=== PATIENT | male | born 1955 | race Caucasian/White ===

== ENCOUNTER → 2017-09-07 00:32 | Outpatient (CLI) | payer OTHER, SELFPAY ==
--- NOTE | 2017-09-07 12:55 | SCREENCT_ITS ---
SYMPTOMS/DIAGNOSIS: TOBACCO ABUSE, F17.200 CT SCAN OF THE CHEST: CT scan of the chest was performed according to the lung cancer screening protocol. Comparison CT scan is 02/17/11. The visualized thyroid gland appears grossly unremarkable. There is mild atherosclerosis of the thoracic aorta, but no aneurysmal dilatation is present. The heart size is within normal limits. No significant pericardial effusion is seen. Coronary artery calcifications are present. No significant mediastinal, hilar or axillary adenopathy is seen on this noncontrast examination. No pleural effusion or pneumothorax is identified. There are no pulmonary infiltrates. No noncalcified pulmonary nodules are identified. The tracheobronchial tree is unremarkable. There is a healing nondisplaced fracture of the anterolateral aspect of the left 5th rib. There are degenerative changes seen in the spine. IMPRESSION: No pulmonary nodules identified. Category 1. Lung-RAD Category: 1- Negative Lung- RAD Management of Findings: Continue annual LDCT screening in 12 months
== END ==
PROVIDERS: PCP Nurse Practitioner Family; Visit Provider Nurse Practitioner Family
DX: Z12.2 Encounter for screening for malignant neoplasm of respiratory organs (principal); F17.200 Nicotine dependence, unspecified, uncomplicated; I70.0 Atherosclerosis of aorta
CPT/HCPCS: G0297

== ENCOUNTER → 2017-11-04 07:42 | Outpatient (BNVA) | payer OTHER, SELFPAY | PROVIDERS: Visit Provider Surgery | DX: Z12.11 Encounter for screening for malignant neoplasm of colon (principal) ==

== ENCOUNTER 2017-11-14 08:00 | Day surgery (SDC) | payer OTHER, SELFPAY ==
--- NOTE | 2017-11-14 06:56 | W.COLOREPORT ---
Colonoscopy Report Date of procedure: 11/14/17 Pre-op diagnosis general: Hx of polyps Post-op diagnosis procedure note: other (cecal polyp, mild diverticulosis) Procedure: Colonoscopy with polypectomy by forceps Surgeon: Sarika Almanza Anesthesia proc note operative: MAC (Eulogio Ness CRNA) Estimated blood loss (mL): 5 Pathology: other (cecal polyp) Complications: None Disposition: same day Indications: Mrs. Alvarez is a pleasant 61 year old female seen in the office for a colonoscopy. Her last Colonoscopy was in 2011 and she had an adenomatous polyp. Risks, benefits and complications were reviewed and she wished to proceed. Prep: Miralax/Dulcolax Procedure Start Time: 10:08 Procedure End Time: 10:37 Retraction Time: 21 minutes Findings: One adenomatous polyp in the cecum. Mild diverticulosis of the sigmoid colon Procedure Description: After informed consent was obtained the patient was taken to the procedure room and placed in a left decubitous position. Monitors were applied and a time out was done. The patients name, date of , procedure, allergies to medications and metal in their body was reviewed. The patient was then sedated. Once sedated and comfortable a rectal exam was done. External exam was normal. Internal exam revealed a normal sphincter tone and no palpable masses. The prostate felt smooth. The scope was then introduced and retroflexed. No internal hemorrhoids were identified. The scope was then advanced to the cecum without difficulty. The TI and appendiceal orifice were identified. The prep was adequate. In the cecum there was a small polyp that was removed with forceps. The scope was then slowly retracted over 21 minutes back into the rectum. There was mild diverticulosis in the sigmoid colon. The scope was removed and the patient was woken up and taken back to Same day surgery in stable condition. The patient tolerated the procedure well and there were no immediate complications. Follow up: The patient should follow up in 3-5 years, depending on final pathology results, unless they develop changes in bowel habits or other new gastrointestinal complaints.
--- NOTE | 2017-11-14 07:00 | PDOC.DSDIS_ITS ---
Discharge Plan Disposition Patient Disposition: HOME Condition: Good Discharge Details Reason For Visit: colonoscopy Attending Provider: Sarika Almanza Primary Care Provider: Alejandrina Orozco Home Meds and New Rx's Prescriptions: Continue aspirin [Adult Low Dose Aspirin] 81 mg tablet,delayed release (DR/EC) 81 mg PO DAILY RF: 0 multivitamin [Daily Value] 1 EACH tablet 1 ea PO DAILY RF: 0 cholecalciferol (vitamin D3) [Vitamin D3] 2,000 UNIT capsule 2,000 unit PO DAILY RF: 0 metformin 500 MG tablet 500 mg PO BID RF: 0 simvastatin 20 MG tablet 20 mg PO DAILY RF: 0 lisinopril 10 mg Tablet 10 mg PO RF: 0 Discontinued polyethylene glycol 3350 17 gram powder in packet 255 g PO DAILY Qty: 15 RF: 0 bisacodyl [Dulcolax (bisacodyl)] 5 mg tablet,delayed release (DR/EC) 5 mg PO ONCE Qty: 4 RF: 0 Discharge Instructions Instructions: Colonoscopy (DC), Colorectal Polyps (DC), Diverticulosis (DC) Additional Instructions: Findings: 1 polyps mild diverticulosis Follow up: 5 years New medications: none Please call if you develop: fevers >101.5 Nausea or Vomiting Abdominal pain that is not transient 1. Because there will be medication in your system for the next 24 hours, you may feel a little sleepy. Your coordination will be affected. Therefore: a. Do not drive or operate dangerous equipment for 24 hours. b. Do not drink alcohol beverages for 24 hours (not even beer). c. Plan to go home and rest for the day. 2. Generally there are no restrictions on your activity after a day or so has gone by, but you may feel a bit fatigued for a few days. 3 After you arrive home you may have a light meal and return to a normal diet as you can tolerate it without feeling sick to your stomach. 4. After surgery, you may feel pain or discomfort. This should be only transient , but if it persists please contact your doctor. 5. If there are any questions regarding the findings of your procedure, please feel free to contact your doctor. 6. If you are unable to contact your doctor with a problem, contact the hospital at [phone]. 7. Continue all your regular medications unless directed otherwise. I understand the above instructions and have no questions. Signature of Patient or Responsible Adult Escort Date/Time Name of Responsible Adult Escort Signature of Nurse Date/Time Stand Alone Forms: Renu Franks (MODE) Activity:: Activity as Tolerated Diet:: high fiber diet Discharge Orders Discharge Orders: Discharge Order (Routine); Ordered 11/14/17 Ordered By: Sarika Almanza
[2017-11-14 08:20] VITALS: BP 133/85; PULSE 75; RESP 19; TEMP 36.1; O2SAT 98
[2017-11-14] MEDS: Lactated Ringers 1,000 ML 80 ML IV (08:49)
--- NOTE | 2017-11-14 10:18 | BOWEL_PTH ---
PATIENT: Toby Alvarez LOC: [facility] U#:[id number] AGE/SX: 61/M ROOM: RE11/14/[address]: Sarika Almanza MD : [id number] BED: DIS: 11/14/2017 SPEC #: [id number] RECD: 11/14/17 13:05 STATUS: CJ REQ #: [id number] BRI: 11/14/17 10:[address]: Sarika Almanza DEPT: Surgical Specimen RECD BY: Marcy Prieto ENTERED: 11/14/17 13:06 SP TYPE: Bowel OTHR DR: Alejandrina Orozco Tissues: 1 - BIOPSY BOWEL 2 - BIOPSY BOWEL Procedures: GROSS AND MICRO LEVEL 4 Comments: [id number]
[2017-11-14 11:14] VITALS: BP 112/81; PULSE 60; RESP 20; TEMP 34.6; O2SAT 97
== END 2017-11-14 11:31 | disposition home or self-care (01) ==
LOC: SUR 08:01
PROVIDERS: PCP Nurse Practitioner Family; Visit Provider Surgery
PROC: 0DJD8ZZ Inspection of Lower Intestinal Tract, Via Natural or Artificial Opening Endoscopic (ICD-10-PCS; CPT 45378; principal; 2017-11-14 10:15)
DX: Z12.11 Encounter for screening for malignant neoplasm of colon (principal); D12.0 Benign neoplasm of cecum; K63.5 Polyp of colon; Z86.010 Personal history of colon polyps; J44.9 Chronic obstructive pulmonary disease, unspecified; E11.9 Type 2 diabetes mellitus without complications; Z79.84 Long term (current) use of oral hypoglycemic drugs; K21.9 Gastro-esophageal reflux disease without esophagitis; F17.210 Nicotine dependence, cigarettes, uncomplicated; I10 Essential (primary) hypertension
CPT/HCPCS: 45380; 88305

== ENCOUNTER 2018-06-20 09:27 | Outpatient (REF) | payer OTHER, SELFPAY ==
[2018-06-20 13:42] LABS: ALT 116 U/L (12-78); AST 73 U/L (15-37); Albumin 3.9 g/dL (3.4-5.0); Alkaline Phosphatase 72 U/L (46-116); Anion Gap 9.7 mmol/L (3-11); BUN 19 mg/dL (7-18); Bilirubin, Total 0.4 mg/dL (0.2-1.0); CO2 27.3 mmol/L (21.0-32.0); CREATININE 1.08 mg/dL (0.70-1.30); Calcium 9.6 mg/dL (8.5-10.1); Chloride 102 mmol/L (98-107); Glucose 154 mg/dL (70-100); Potassium 4.8 mmol/L (3.5-5.1); Sodium 139 mmol/L (136-145); Total Protein 7.4 g/dL (6.4-8.2)
== END 2018-06-20 09:47 ==
LOC: NCHCN 09:27
PROVIDERS: PCP Nurse Practitioner Family; Visit Provider Nurse Practitioner Family
DX: I10 Essential (primary) hypertension (principal); E11.9 Type 2 diabetes mellitus without complications; R53.83 Other fatigue; F17.200 Nicotine dependence, unspecified, uncomplicated; J44.9 Chronic obstructive pulmonary disease, unspecified; K30 Functional dyspepsia
CPT/HCPCS: 80053; 99213

== ENCOUNTER 2020-06-23 11:19 | Outpatient (REF) | payer OTHER, SELFPAY ==
[2020-06-23 21:39] LABS: ALT 104 U/L (16-63); AST 61 U/L (15-37); Albumin 4.1 g/dL (3.4-5.0); Alkaline Phosphatase 78 U/L (46-116); Anion Gap 8.7 mmol/L (3-11); BUN 13 mg/dL (7-18); Bilirubin, Total 0.5 mg/dL (0.2-1.0); CO2 29.3 mmol/L (21.0-32.0); CREATININE 1.1 mg/dL (0.70-1.30); Calcium 9.6 mg/dL (8.5-10.1); Chloride 99 mmol/L (98-107); Glucose 204 mg/dL (74-106); Potassium 5.4 mmol/L (3.5-5.1); Sodium 137 mmol/L (136-145); Total Protein 7.9 g/dL (6.4-8.2)
[2020-06-23 22:14] LABS: Vitamin D 25 Total 54.9 ng/mL (30-100)
== END 2020-06-23 11:20 | disposition home or self-care (01) ==
LOC: NCHCN 11:19
PROVIDERS: PCP Nurse Practitioner Family; Visit Provider Nurse Practitioner Family
DX: Z00.00 Encounter for general adult medical examination without abnormal findings (principal); E55.9 Vitamin D deficiency, unspecified; G62.9 Polyneuropathy, unspecified; K30 Functional dyspepsia; J44.9 Chronic obstructive pulmonary disease, unspecified
CPT/HCPCS: 80053; 82306

== ENCOUNTER 2020-07-01 09:00 | Outpatient (REF) | payer OTHER, SELFPAY ==
[2020-07-01 14:17] LABS: ALT 102 U/L (16-63); AST 62 U/L (15-37); Alkaline Phosphatase 76 U/L (46-116); Anion Gap 7.2 mmol/L (3-11); BUN 13 mg/dL (7-18); Bilirubin, Total 0.6 mg/dL (0.2-1.0); CO2 30.8 mmol/L (21.0-32.0); CREATININE 1.1 mg/dL (0.70-1.30); Calcium 9.5 mg/dL (8.5-10.1); Chloride 103 mmol/L (98-107); Glucose 225 mg/dL (74-106); Potassium 5.5 mmol/L (3.5-5.1); Sodium 141 mmol/L (136-145); Total Protein 7.6 g/dL (6.4-8.2)
[2020-07-03 10:59] LABS: Hepatitis A Antibody IgM Negative (Negative); Hepatitis B Core Antibody Negative (Negative); Hepatitis B surface Ag Negative (Negative); Hepatitis C Ab w Rflx HCV PCR Negative (Negative)
== END 2020-07-01 09:01 | disposition home or self-care (01) ==
LOC: NCHCN 09:00
PROVIDERS: PCP Nurse Practitioner Family; Visit Provider Nurse Practitioner Family
DX: R94.5 Abnormal results of liver function studies (principal); E87.5 Hyperkalemia
CPT/HCPCS: 80053; 86704; 86709; 86803; 87340

== ENCOUNTER 2020-07-21 08:19 | Outpatient (REF) | payer OTHER, SELFPAY ==
[2020-07-21 14:45] LABS: Anion Gap 7.8 mmol/L (3-11); BUN 11 mg/dL (7-18); CO2 30.2 mmol/L (21.0-32.0); CREATININE 1.1 mg/dL (0.70-1.30); Calcium 9.6 mg/dL (8.5-10.1); Chloride 102 mmol/L (98-107); Glucose 184 mg/dL (74-106); Potassium 5.2 mmol/L (3.5-5.1); Sodium 140 mmol/L (136-145)
== END 2020-07-21 08:20 | disposition home or self-care (01) ==
LOC: NCHCN 08:19
PROVIDERS: PCP Nurse Practitioner Family; Visit Provider Nurse Practitioner Family
DX: I10 Essential (primary) hypertension (principal)
CPT/HCPCS: 80048

== ENCOUNTER 2020-08-07 08:50 | Outpatient (REF) | payer OTHER, SELFPAY ==
[2020-08-07 13:36] LABS: Potassium 5.1 mmol/L (3.5-5.1)
== END 2020-08-07 08:51 | disposition home or self-care (01) ==
LOC: NCHCN 08:50
PROVIDERS: PCP Nurse Practitioner Family; Visit Provider Nurse Practitioner Family
DX: E87.5 Hyperkalemia (principal)
CPT/HCPCS: 84132

== ENCOUNTER 2020-08-26 07:46 | Outpatient (CLI) | payer OTHER, SELFPAY ==
[2020-08-26 13:53] LABS: COMMENT (LAB VIEW ONLY) 84.87 mg/dL; Microalb ug/mg Crea 50.5 ug/mg Cr
[2020-08-27 19:13] LABS: Fructosamine 336 mcmol/L (200 - 285)
== END 2020-08-26 07:47 | disposition home or self-care (01) ==
LOC: LBO 07:47
PROVIDERS: PCP Nurse Practitioner Family; Visit Provider Internal Medicine Endocrinology, Diabetes & Metabolism
DX: E11.65 Type 2 diabetes mellitus with hyperglycemia (principal)
CPT/HCPCS: 36415; 82043; 82570; 82985